=== PATIENT | male | born 1950 | race Caucasian/White ===

== ENCOUNTER → 2020-09-11 | Outpatient (CLI) | payer MEDICARE, OTHER | END | disposition home or self-care (01) | LOC: SHCH 11:21 | PROVIDERS: ATTEND Internal Medicine Cardiovascular Disease | DX: I45.10 Unspecified right bundle-branch block (principal); R94.31 Abnormal electrocardiogram [ECG] [EKG] | CPT/HCPCS: 93306; 93356 ==

== ENCOUNTER → 2023-06-16 | Outpatient (CLI) | payer OTHER | END | disposition home or self-care (01) | LOC: RAH 12:47 | PROVIDERS: ATTEND Internal Medicine Cardiovascular Disease | DX: Z13.6 Encounter for screening for cardiovascular disorders (principal) | CPT/HCPCS: 75571 ==

== ENCOUNTER 2023-06-27 06:28 | Day surgery (SDC) | payer MEDICARE, OTHER ==
[2023-06-22 15:58] LABS: BASOPHILS # (AUTO) 0.02 K/uL (0.00-0.20); BASOPHILS % (AUTO) 0.2 % (0.0-5.0); HEMATOCRIT 39.5 % (42-54); IMMATURE GRANULOCYTE ABSOLUTE 0.03 K/uL (0-1); LYMPHOCYTES # (AUTO) 1.7 K/uL (1.0-4.8); LYMPHOCYTES % (AUTO) 19.8 % (21.0-51.0); MEAN CORPUSCULAR HEMOGLOBIN 32.5 pg (27.0-33.0); MEAN CORPUSCULAR HGB CONC 33.2 g/dL (32.0-36.0); MONOCYTES % (AUTO) 11.5 % (3.0-13.0); NEUTROPHILS # (AUTO) 5.7 K/uL (1.8-7.7); NEUTROPHILS % (AUTO) 68.1 % (40.0-77.0); PLATELET COUNT (AUTO) 257 K/uL (130-400); RED BLOOD CELL COUNT(AUTO) 4.03 MIL/uL (4.50-6.20); RED CELL DISTRIBUTION WIDTH 12.7 % (11.0-15.5); WHITE BLOOD COUNT (AUTO) 8.4 K/uL (4.8-10.8)
[2023-06-22 16:05] LABS: POTASSIUM 4.2 mmol/L (3.5-5.1)
[2023-06-22 16:09] LABS: INR 0.94 (0.85-1.15); PROTHROMBIN TIME 10.9 SEC (9.6-11.6)
[2023-06-22 16:11] LABS: PARTIAL THROMBOPLASTIN TIME 25.1 SEC (26.3-35.5)
[2023-06-22 16:53] VITALS: BP 127/69; PULSE 60; RESP 19
[~2023-06-27] VITALS: Ht 177.8 cm; Wt 86.1 kg
[2023-06-27] VITALS (16 sets, daily range): BP systolic 110–147; BP diastolic 57–81; PULSE 56–69; RESP 14–19
[~2023-06-27 06:28] MED LIST: ALBU18HF7 IH; ATEN50TA PO; BUDE10.2 IH; CHOL100046 PO; FLUT9.9S NS; HYDR25TA PO; LISI10TA24 PO; LORA10TA7 PO; OMEP20CA12 PO; ROSU20TA73 PO; [UNRECOGNIZED DRUG - OTHER] PO
[2023-06-27] MEDS ORDERED: MIDAZOLAM HCL 1 MG/ML 2ML VIAL ONE (06:49)
[2023-06-27] MEDS ORDERED: FENTANYL CITRATE PF 50 MCG/1 ML 5ML AMP IV ONE (06:51)
[2023-06-27] MEDS ORDERED: PROPOFOL 10 MG/ML 20ML VIAL IV ONE (06:58)
[2023-06-27] MEDS ORDERED: ROCURONIUM BROMIDE 10MG/1ML 5ML VL ONE (06:59)
[2023-06-27] MEDS ORDERED: ONDANSETRON 4MG INJ ONE (06:59)
[2023-06-27] MEDS: LACTATED RINGERS 1000ML 1,000 ML IV ONE (07:00)
[2023-06-27] MEDS ORDERED: ROPIVACAINE 0.5% 5MG/ML 30ML ONE (07:04)
[2023-06-27] MEDS ORDERED: LIDOCAINE 2%-EPI 1:200,000 20 ML VIAL IJ ONE (07:04)
[2023-06-27] MEDS ORDERED: BUPIVACAINE/PF 0.25% 30ML VIAL IJ ONE (07:12)
[2023-06-27] MEDS: CEFAZOLIN SODIUM 2 GM VIAL ONE (07:25)
[2023-06-27] MEDS ORDERED: EPHEDRINE SULFATE 50 MG/ML AMPULE ONE (07:46)
[2023-06-27] MEDS ORDERED: NEOSTIGMINE METHYLSULFATE 1MG/ML IV ONE (08:02)
[2023-06-27] MEDS ORDERED: GLYCOPYRROLATE 0.2 MG/ML 5 ML VIAL ONE (08:02)
[2023-06-27] MEDS ORDERED: DOCU-116 PO (08:04)
[2023-06-27] MEDS ORDERED: TRAM50TA4 PO (08:04)
[2023-06-27] MEDS ORDERED: METH-662 PO (08:04)
[2023-06-27] MEDS ORDERED: GABA-529 PO (08:04)
== END 2023-06-27 09:59 | disposition home or self-care (01) ==
LOC: DAH 06:28
PROVIDERS: ATTEND Surgery
DX: K43.6 Other and unspecified ventral hernia with obstruction, without gangrene (principal); I10 Essential (primary) hypertension; E78.5 Hyperlipidemia, unspecified; J45.909 Unspecified asthma, uncomplicated; K21.9 Gastro-esophageal reflux disease without esophagitis; Z79.899 Other long term (current) drug therapy; Z79.01 Long term (current) use of anticoagulants; Z90.49 Acquired absence of other specified parts of digestive tract; Z98.890 Other specified postprocedural states; Z82.49 Family history of ischemic heart disease and other diseases of the circulatory system
CPT/HCPCS: 80048; 85025; 85610; 85730; 36415; 93005; 49594; 64488; A6260; A4663; J7030 ×2; J7120; J3010; J3490 ×4; J2250; J2704; J2405; J2710; J2795; J0690; C1769 ×2; A4649; A4930 ×2; A4215; A4223; A4222; A4221; A4600; J0665